=== PATIENT | female | born 1975 | race Two or more races ===

== ENCOUNTER 2017-06-25 11:51 | Emergency (ER) | payer SELFPAY ==
[~2017-06-25] VITALS: Ht 152.4 cm; Wt 68.2 kg
[~2017-06-25 11:51] MED LIST: OMEP20 PO
[2017-06-25] MEDS ORDERED: IBUPROFEN 800 MG TABLET PO ONE (13:45)
[2017-06-25 14:17] VITALS: BP 118/69
== END 2017-06-25 16:05 | disposition home or self-care (01) ==
LOC: EMS 11:52
DX: S92.352A Displaced fracture of fifth metatarsal bone, left foot, initial encounter for closed fracture (principal); X50.1XXA Overexertion from prolonged static or awkward postures, initial encounter; Y93.89 Activity, other specified; Y92.89 Other specified places as the place of occurrence of the external cause; Y99.8 Other external cause status
CPT/HCPCS: 29515; 99285